=== PATIENT | male | born 2000 | race Caucasian/White ===

== ENCOUNTER 2025-07-15 23:10 | Emergency (ER) | payer OTHER, SELFPAY ==
[2025-07-15 23:12] VITALS: BP 130/67; PULSE 62; RESP 18; TEMP 36.8; O2SAT 95; BMI 36.6
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
--- OUTSIDE RECORDS SUMMARY | 2025-07-16 00:04 | XMS_ITS | Clinical Summary ---
Author Organization [facility] Address [address] [place] [address] Care Team Providers Care Softball Core Molder Name Role Phone Shweta Benjamin PA-C Primary Care Provi nena Mohsen Drew MD Unavailable Allergies No known active allergies Medications No known medications Active Problems Problem Noted Date Diagnosed Date Obesity (BMI 30.0-34.9) 12/24/2024 Seasonal allergies 01/10/2024 Resolved Problems Problem Noted Date Diagnosed Date Resolved Date Chronic bilateral thoracic back pain 04/17/2022 12/24/2024 History of COVID-19 11/23/2020 12/25/19 25 Overview (12/24/2024): Positive test at [facility] and [facility] - end May 2020. Mild case - 2 days of allergy symptoms. No chest pain or shortness of breath. No cardiac symptoms since and has been doing college football workouts. Normal Cardiac exam on 11/23/2020. No ECG needed. Cleared for all physical activities. Immunizations Immunization Administration Dates Next Due DTaP 5 10/03/2006, 3,02/19/2002,12/11,2001 HPV Nonavalent 08/11/2019,12/15/2018,10/12/2018 Hep A, 2 Dose 12/13/2013,10/26/2010 Hep B, Adolescent or Pediatric 02/18/2003,2001,2001 Hib (PRP-T) 11/16/2002, 2,2001,10/12 IPV 10/02/2005, 2,2001,10/12 Influenza, Quadrivalent (FLU ARIX, AFLURIA, FLULAVAL, FLUZONE) Preservative Free IM 06/26/2020 MMR 10/03/2006,11/16/2002 Meningococcal MCV4P (Menactra) 10/06/2017,2012 Meningococcal Serogroup B 3-Dose 05/03/2020,09/26 Pneumococcal Conjugate 7-Valent 02/19/20 03,02/19/2002,2001,10/12 Tdap 10/07/2012 Varicella 10/03/2006,08/17/2002 Family History Medical History Relation Name Comments Hypertension Father Relation Name Status Comments Father Social History Tobacco Use Types Packs/Day Years Used Date Smoking Tobacco: Never Smokeless Tobacco: Never Alcohol Use Standard Drinks/Week Comments Yes 0 (1 standard drink = 0.6 oz pur e alcohol) Social Connection and Isolation Panel Answer Date Recorded In a typical week, how many times do you talk on the phone with family, friends, or neighbors? More than three times a week 12/24/2024 Frequency of Social Gatherin gs with Friends and Family Not on file 12/24/2024 Attends Scientologist Services Not on file 12/24 Active Member of Clubs or Organizations Not on f ile 12/24/2024 Attends Club or Organization Meetings Not on myrtle e 12/24/2024 Marital Status Not on file 12/24/2024 AUDIT-C Answer Date Recorded Q1: How often do you have a drink containing alc ohol? 2-4 times a month 12/24/2024 Q2: How many drinks containi ng alcohol do you have on a typical day when you are drinking? 3 or 4 12/24/2024 Frequency of Binge Drinking Not on file 11/27 PHQ-2 Answer Date Recorded PHQ-2 Total Score 0 12/24/2024 Hunger Vital Sign Answer Date Recorded Within the past 12 months, y ou worried that your food would run out before you got the money to buy more. Never true 12/25/19 25 Within the past 12 months, t he food you bought just didn't last and you didn't have money to get more. Never true 12/24/2024 PRAPARE - Transportation Answer Date Re corded In the past 12 months, has l ack of transportation kept you from medical appointments or from getting medications? No 11/27 In the past 12 months, has l ack of transportation kept you from meetings, work, or from getting things needed for daily living? No 12/24/2024 Housing Stability Vital Sign Answer Ildefonso e Recorded In the last 12 months, was t here a time when you were not able to pay the mortgage or rent on time? No 12/24/2024 In the past 12 months, how m any times have you moved where you were living? 0 12/24/2024 At any time in the past 12 m [facility], were you homeless or living in a detention (including now)? No 12/24/2024 Physical Activity Answer Date Recorded On average, how many days pe r week do you engage in moderate to strenuous exercise (like a brisk walk)? 5 days 12/24/2024 On average, how many minutes do you exercise per day at this level? 120 min 12/24/2024 Education Answer Date Recorded What is the highest level of school you have completed or the highest degree you have received? Master's degree (e.g., MA, MS, [place], MEd, LOG OPERATIONS COORDINATOR, [employer]) 12/24/2024 Sex and Gender Information Value Date Recorded Sex Assigned at Not on file Legal Sex Male 2:04 PM EST Gender Identity Not on file Sexual Orientation Not on file Last Filed Vital Signs Vital Sign Reading Time Taken Comments Blood Pressure 102/60 12/24/2024 7:56 AM EDT Pulse 72 12/24/2024 7:56 AM EDT Temperature 36.2 C (97.2 F) 12/24/2024 7:56 AM EDT Respiratory Rate 18 12/24/2024 7:56 AM EDT Oxygen Saturation 98% 12/24/2024 7:56 AM EDT Inhaled Oxygen Concentration - - Weight 108 kg (237 lb 12.8 oz) 12/24/2024 7:56 A M EDT Height 177.8 cm (5' 10 ) 12/24/2024 7:56 AM EDT Body Mass Index 34.12 12/24/2024 7:56 AM EDT Plan of Treatment Upcoming Encounters Date Type Department Care Team (Late st Contact Info) Description 12/26/2025 8:00 AM EDT Office Visit [address] [place] [phone] Shweta Benjamin PA-C [address] [place] [address] Health Maintenance Due Date Last Done Comments Hepatitis C Virus Screening 2001 HIV Screening 2014 DTaP/Tdap/Td Vaccines (7 - Td or Tdap) 10/07/2022 10/07/2012, 10/03/2006, 02/18/2003, Additional history exists Influenza Vaccine 02/25/2025 06/26/2020 COVID-19 Vaccine ( season) 2025 Physical 12/25/2027 12/24/2024, 12/24/2023 Hepatitis B Vaccines Completed 02/18/2003, 05/25/2002, 2001 Pneumococcal Vaccine: Pediatric (0-5 Years) and At-Risk Patients (6 to 49 Years) Aged Out 02/18/2003, 02/19/2002, 2001, Additional history exists No longer eligible based on patient's age to complete this topic HPV Vaccines Completed 08/11/2019, 11/26, 10/12/2018 Insurance [facility] Care Teams Softball Core Molder Relationship Specialty Start Date End Date Shweta Benjamin PA-C [address] [place] [address] PCP - General Internal Medicine 12/24/23 Mohsen Drew MD [address] [place] [address] Referring Provider Physical Medicine and Rehabilitation 01/10/24
--- OUTSIDE RECORDS SUMMARY | 2025-07-16 00:04 | XMS_ITS | Clinical Summary ---
Author Organization [facility] Address [address] [place] [id number] Phone Care Team Providers Care Embroidery Supervisor Name Role Phone Unavailable Primary Care Provider Unavailabl e Allergies Active Allergy Reactions Criticality Noted Date Comments Environmental 01/03/2018 seasonal Medications No known medications Active Problems Problem Noted Date Diagnosed Date Ingrown hair 04/17/2022 Chronic bilateral thoracic back pain 04/17/2022 Seasonal allergies 11/24/2021 Overview (11/24/2021): Treated with Zyrtec and Flonase OTC prn. History of COVID-19 11/23/2020 Overview (11/23/2020): Positive test at [facility] and [facility] - end May 2020. Mild case - 2 days of allergy symptoms. No chest pain or shortness of breath. No cardiac symptoms since and has been doing college football workouts. Normal Cardiac exam on 11/23/2020. No ECG needed. Cleared for all physical activities. Assessment & Plan (11/23/2020 12:23 PM EDT): Positive test at [facility] and [facility] - end May 2020. Mild case - 2 days of allergy symptoms. No chest pain or shortness of breath. No cardiac symptoms since and has been doing college football workouts. Normal Cardiac exam on 11/23/2020. No ECG needed. Cleared for all physical activities. Overweight 02/22/2020 Assessment & Plan (02/22/2020 6:20 PM EDT): Screening labs ordered at [facility]: HbA1c, fasting lipid, insulin, CMP and Vitamin D. Recommended Vitamin D 600-1000 units/day Resolved Problems Problem Noted Date Diagnosed Date Resolved Date Need for case management follow-up 02/22/2020 11/22/2020 Immunizations Immunization Administration Dates Next Due DTaP 5 10/03/2006, 3,02/19/2002,12/11,2001 HPV Vaccine 9 Valent 08/11/2019,12/15/2018,10/12 Hep A, ped/adol 12/13/2013,10/26/2010 Hep B, ped/adol 02/18/2003,05/25/2002,2001 Hib (PRP-T) 11/16/2002, 2,2001,10/12 IPV 10/02/2005, 2,2001,10/12 Influenza, injectable, quadr ivalent, preservative free 06/26/2020 MMR 10/03/2006,11/16/2002 Meningococcal B Trumenba 05/03/2020,10/19/2019 Meningococcal Conj (Menactra) MCV4P 10/06/2017,0 10/07/2012 Pneumococcal Conjugate 02/18/2003,2001,2001,10/12 Tdap 10/07/2012 Varicella 10/03/2006,08/17/2002 Family History Medical History Relation Name Comments Hypertension Maternal Grandmother Relation Name Status Comments Maternal Grandmother Social History Tobacco Use Types Packs/Day Years Used Date Smoking Tobacco: Never Smokeless Tobacco: Never Alcohol Use Standard Drinks/Week Comments Never 0 (1 standard drink = 0.6 oz pur e alcohol) Hunger/Food Answer Date Recorded In the last 12 months, did y ou or your family ever eat less than you felt you should because there wasn't enough money for food? No 11/24/2021 Stable Housing Answer Date Recorded Are you worried that in the next 2 months you may not have stable housing? No 11/24/2021 Transportation Concerns Answer Date Rec orded In the last 12 months, have you or your family ever had to go without healthcare because you didn't have a way to get there? No 11/24/2021 Hazards in Home Answer Date Recorded Think about the place you li ve. Do you have problems with any of the following? Pests (mice or roaches), mold, no/not working smoke detectors, water leaks, no window guards. No 2021 Financing Utilities Answer Date Recorde d In the last 12 months, has t he electric, gas, oil, or water company threatened to shut off your services in your home? No 11/24/2021 Safety at Home Answer Date Recorded Are you or your family worried about feeling saf e in your home? No 11/24/2021 Outside Support Answer Date Recorded Do you feel that you need mo re support from other people or programs to help you care for yourself or your family? No 11/24/2021 Understanding Health Concerns Answer Da te Recorded Do you need help understandi ng your or your child's healthcare needs (diagnosis, medications, plan, etc.)? No 11/24/2021 Financing Health Concerns Answer Date R ecorded In the last 12 months, was t here a time when your child needed to see a doctor or get medications or supplies but could not because of cost? No 11/24/2021 Missing School or Work Answer Date Donald rded Did you or your child miss s chool or work because of a health problem that could have been avoided? No 11/24/2021 Sex and Gender Information Value Date Recorded Sex Assigned at Not on file Legal Sex Male 6:19 PM EDT Gender Identity Male 11/24/2021 8:14 AM EDT Sexual Orientation Straight 11/01/2019 2: 12 PM EDT Last Filed Vital Signs Vital Sign Reading Time Taken Comments Blood Pressure 116/72 04/17/2022 11:22 AM EDT Pulse 78 04/17/2022 11:22 AM EDT Temperature 37 C (98.6 F) 04/17/2022 11:22 AM EDT Respiratory Rate 18 04/17/2022 11:2 2 AM EDT Oxygen Saturation 98% 04/17/2022 11: 22 AM EDT Inhaled Oxygen Concentration - - Weight 98.8 kg (217 lb 12.8 oz) 022 11:22 AM EDT Height 176.6 cm (5' 9.53 ) 04/17/2022 1 1:22 AM EDT Body Mass Index 31.68 04/17/2022 11:22 AM EDT Plan of Treatment Health Maintenance Due Date Last Done Comments DTaP,Tdap,and Td Vaccines (7 - Td or Tdap) 10/07/2022 10/07/2012, 10/03/2006, 02/18/2003, Additional history exists Influenza Vaccines (#1) 2025 06/26/2020 COVID-19 Vaccine (2 - 2024-2 6 season) 2025 02/01/2021 HIB Vaccines Completed 11/16/2002, 01/26, 2001, Additional history exists Hepatitis B Vaccines Completed 02/18/2003, 05/25/2002, 2001 Pneumococcal Vaccine Completed 02/18/2003, 02/19/2002, 2001, Additional history exists IPV Vaccines Completed 10/02/2005, 04/28, 2001, Additional history exists MMR Vaccines Completed 10/03/2006, 11/16/2002 Varicella Vaccines Completed 10/03/2006, 08/17/2002 Hepatitis A Vaccines Completed 12/13/2013, 10/27/19 11 Meningococcal Vaccine Completed 10/06/2017, 013 HPV Vaccines Completed 08/11/2019, 11/26, 10/12/2018 Men B Vaccine Completed 05/03/2020, 10/19/2019 Chlamydia and Gonorrhea Screening Discontinued 11/24/2021, 02/22/2020, 10/12/2018 Procedures * Due to [place] [employer] law, this organization might not be sharing sensitive test results. Procedure Name Priority Date/Time Associated Diagnosis Comments CHLAMYDIA AND GONORRHEA, AMPLIFIED Routine 11/24/2021 9:07 AM EDT Screening examination for STD (sexually transmitted disease) from Last 3 Months or Most Recently Relevant to Health Maintenance Results * Due to [place] [employer] law, this organization might not be sharing sensitive test results. * Chlamydia and Gonorrhoea, Amplified (11/24/2021 9:07 AM EDT) Chlamydia Trachomatis, DNA Probe NEGATIVE (NEG) [facility] Comment: No Chlamydia Trachomatis RNA detected in this patient's sample (REFERENCE RANGE/NORMAL VALUE: NOT DETECTED) Note: This test uses batter mixer helper- mediated amplification method to detect rRNA from C. Trachomatis URINE GC AMP PROBE NEGATIVE (NEG) [facility] Comment: No Neisseria Gonorrhoeae RNA detected in this patient's sample (REFERENCE RANGE/NORMAL VALUE: NOT DETECTED) NOTE: This test uses batter mixer helper-mediated amplification method to detect rRNA from N.Gonorrhoeae. A negative result does not preclude infection. In the case of a negative urine result, testing of an endocervical(female) or urethral (male) specimen is recommended if there is high clinical suspicion of infection. Due to very high sensitivity of Nucleic Acid Amplification Test, false positive results may occur. Therefore, specimen handling is extremely important. In patients in whom the disease is unlikely, additional sample for testing should be considered after an initial positive result. The performance characteristics of this test have not been evaluated in children. The Aptima Combo2 assay is not intended for the evaluation of suspected sexual abuse or for other medico-legal indications. The ordering provider should assess if the patient had consensual sex without risk of sexual abuse. Consult the [facility] if needed. Contact phone number . Therapeutic failure or success cannot be determined with the Aptima Combo2 assay since nucleic acid may persist following appropriate antimicrobial therapy. The Centers for Disease Control and Prevention (CDC) recommends confirmatory retesting using culture or a different nucleic acid amplification test when positive results occur, if indicated. Testing performed or reported by [facility], a Service of [facility], [address] [place] [address] [place] [address] Howard Miller MD, Principal Strategist [facility]# [id number] Urine (Urine) 11/24/2021 9:0 7 AM EDT 11/24/2021 9:24 PM EDT Chayito Moore MD LAB MICROBIOLOGY - GENERAL ORDE TINO Final Result [facility] from Last 3 Months or Most Recently Relevant to Health Maintenance [place] [id number]
--- OUTSIDE RECORDS SUMMARY | 2025-07-16 00:04 | XMS_ITS | Encounter Summary ---
Author Organization [facility] Address [address] [place] [address] Phone Care Team Providers Care Hob Grinder Name Role Phone Chayito Moore MD Primary Care Provider [phone] Encounter Details Date Type Department Care Team (Late st Contact Info) Description 12/14/2017 Conversion Encounter [facility] [address] [place] [address] Chayito Moore MD [address] [place] [address] Social History Tobacco Use Types Packs/Day Years Used Date Smoking Tobacco: Never Assessed Sex and Gender Information Value Date Recorded Sex Assigned at Not on file Legal Sex Male 6:19 PM EDT Gender Identity Male 11/24/2021 8:14 AM EDT Sexual Orientation Straight 11/01/2019 2: 12 PM EDT documented as of this encounter Plan of Treatment Not on file documented as of this encounter Visit Diagnoses Not on filedocumented in this encounter Care Teams Hob Grinder Relationship Specialty Start Date End Date Chayito Moore MD [address] [place] [address] PCP - General 12/03/17 11/10/22 documented as of this encounter
--- OUTSIDE RECORDS SUMMARY | 2025-07-16 00:04 | XMS_ITS ---
Author Organization Unknown ENCOUNTERS Encounter Performer Location Date Diagnosis Diagnosis [place] [address] [id number] [place] [address] [id number] *Note: Encounters from your own facility or health system may be excluded. Allergies, Adverse Reactions, Alerts Allergen Type Severity Identification Date Medications Name Date Quantity Days Supplied GPI Number
[2025-07-16 00:56] VITALS: BP 121/83; PULSE 59; RESP 18; O2SAT 96
[2025-07-16] MEDS: Lidocaine 4 % Patch ADH..PATCH 1 PATCH TRANSDERMA (01:04)
[2025-07-16 01:05] VITALS: BP 121/83; PULSE 59; RESP 18; TEMP 36.6; O2SAT 96
== END 2025-07-16 01:05 | disposition home or self-care (01) ==
PROVIDERS: Emergency Provider Emergency Medicine; PCP Physician Assistant Medical
DX: S13.4XXA Sprain of ligaments of cervical spine, initial encounter (principal); V43.52XA Car driver injured in collision with other type car in traffic accident, initial encounter; Y93.89 Activity, other specified; Y92.488 Other paved roadways as the place of occurrence of the external cause; Y99.8 Other external cause status; Z87.828 Personal history of other (healed) physical injury and trauma
CPT/HCPCS: 99283; 99285